=== PATIENT | female | born 1975 | race Caucasian/White ===

== ENCOUNTER → 2017-09-28 | Outpatient (CLI) | payer OTHER | END | disposition home or self-care (01) | LOC: RADPV 11:14 | PROVIDERS: ATTEND Nurse Practitioner | DX: M41.85 Other forms of scoliosis, thoracolumbar region (principal) | CPT/HCPCS: 72100 ==

== ENCOUNTER 2017-10-04 07:13 | Emergency (ER) | payer OTHER ==
[~2017-10-04] VITALS: Ht 167.6 cm; Wt 72.7 kg
[2017-10-04] MEDS ORDERED: HYDR25TA PO (07:22)
[2017-10-04] MEDS ORDERED: HYD25 PO (07:22)
[2017-10-04] MEDS ORDERED: TRAM50TA4 PO (07:22)
[2017-10-04] MEDS ORDERED: ALBU8HFA IH (07:22)
[2017-10-04] MEDS ORDERED: ATEN50TA PO (07:22)
[2017-10-04] MEDS ORDERED: GABAPENTIN 100 MG CAPSULE PO ONE (08:00)
[2017-10-04] MEDS ORDERED: LIDOCAINE HCL 5% TRANSDERMAL PATCH TD ONE (08:00)
[2017-10-04] MEDS ORDERED: KETOROLAC TROMETHAMINE 30 MG/ML VIAL IM ONE (08:00)
[2017-10-04] MEDS ORDERED: CYCLOBENZAPRINE HCL 10 MG TABLET PO ONE (10:00)
[2017-10-04] MEDS ORDERED: DEXAMETHASONE 4 MG TABLET PO ONE (10:00)
[2017-10-04 10:03] VITALS: BP 125/71
== END 2017-10-04 10:40 | disposition home or self-care (01) ==
LOC: EMS 07:15 → EEVIPCON 07:15 → EMS 10:40
DX: M54.5 Low back pain (principal); J45.909 Unspecified asthma, uncomplicated; F17.200 Nicotine dependence, unspecified, uncomplicated; Z88.6 Allergy status to analgesic agent; Z91.013 Allergy to seafood; Z85.41 Personal history of malignant neoplasm of cervix uteri; Z90.49 Acquired absence of other specified parts of digestive tract
CPT/HCPCS: 72131; 96372; 99284; J1885; J8540

== ENCOUNTER 2017-10-08 10:30 | Emergency (ER) | payer OTHER ==
[~2017-10-08] VITALS: Ht 167.6 cm; Wt 72.7 kg
[2017-10-08] MEDS ORDERED: KETOROLAC TROMETHAMINE 60 MG/2 ML VIAL IM ONE (11:15)
[2017-10-08] MEDS ORDERED: CYCLOBENZAPRINE HCL 10 MG TABLET PO ONE (13:00)
[2017-10-08 13:01] VITALS: BP 139/97
== END 2017-10-08 13:10 | disposition home or self-care (01) ==
LOC: EEVIPCON 10:30 → EMS 10:35
DX: M76.10 Psoas tendinitis, unspecified hip (principal); M48.061 Spinal stenosis, lumbar region without neurogenic claudication; L90.5 Scar conditions and fibrosis of skin; F17.210 Nicotine dependence, cigarettes, uncomplicated; J45.909 Unspecified asthma, uncomplicated; Z88.6 Allergy status to analgesic agent; Z91.013 Allergy to seafood
CPT/HCPCS: 96372; 99283; J1885

== ENCOUNTER → 2017-10-08 | Outpatient (CLI) | payer OTHER ==
[~2017-10-08] MED LIST: ALBU8HFA IH; ATEN50TA PO; HYD25 PO; HYDR25TA PO; TRAM50TA4 PO
== END | disposition home or self-care (01) ==
LOC: RADMN 08:24
PROVIDERS: ATTEND Nurse Practitioner
DX: S73.101A Unspecified sprain of right hip, initial encounter (principal); M48.061 Spinal stenosis, lumbar region without neurogenic claudication; M51.26 Other intervertebral disc displacement, lumbar region; M47.897 Other spondylosis, lumbosacral region; X58.XXXA Exposure to other specified factors, initial encounter; Y93.89 Activity, other specified; Y92.89 Other specified places as the place of occurrence of the external cause; Y99.8 Other external cause status
CPT/HCPCS: 72158; 72195

== ENCOUNTER 2017-11-13 13:43 | Inpatient (IN) | payer OTHER ==
[~2017-11-13] VITALS: Ht 167.6 cm; Wt 62.9 kg
[2017-11-13] MEDS ORDERED: KETOROLAC TROMETHAMINE 30 MG/ML VIAL IVP ONE (14:00)
[2017-11-13] MEDS ORDERED: MethylPREDNISolone SOD SUCC 125 MG/2 ML VIAL IVP ONE (14:00)
[2017-11-13] MEDS ORDERED: OxyCODONE HCL/ACETAMINOPHEN 5-325 MG TABLET PO ONE (14:00)
[2017-11-13] MEDS ORDERED: ONDANSETRON HCL 4 MG/2 ML VIAL IVP ONE (14:30)
[2017-11-13] MEDS ORDERED: HYDROmorphone 2 MG/ML SYRINGE IVP ONE ×2 (14:30→18:00)
[2017-11-13 14:34] LABS: BASOPHILS % (AUTO) 1.2 % (0.0-2.0); EOSINOPHILS % (AUTO) 2.8 % (1.0-6.0); HEMATOCRIT 40.8 % (36-46); HEMOGLOBIN 13.8 g/dL (12.0-16.0); LYMPHOCYTES # (AUTO) 2.6 K/uL (1.0-4.8); LYMPHOCYTES % (AUTO) 27.3 % (22.0-44.0); MEAN CORPUSCULAR HEMOGLOBIN 30.5 pg (26.0-34.0); MEAN CORPUSCULAR HGB CONC 33.8 G/dL (31.0-37.0); MEAN CORPUSCULAR VOLUME 90 fL (80-100); MONOCYTES # (AUTO) 0.7 K/uL (0.1-1.0); NEUTROPHILS # (AUTO) 5.8 K/uL (1.8-7.7); NEUTROPHILS % (AUTO) 61.7 % (40.0-70.0); PLATELET COUNT (AUTO) 384 K/uL (150-450); RED BLOOD CELL COUNT(AUTO) 4.52 MIL/uL (4.00-5.20); RED CELL DISTRIBUTION WIDTH 13.8 % (11.5-14.5)
[2017-11-13 14:45] LABS: ANION GAP 8 mmol/L (8-16); CALCIUM, TOTAL 9.3 mg/dL (8.8-10.5); CARBON DIOXIDE 29 mmol/L (22-29); CHLORIDE 105 mmol/L (98-107); CREATININE 0.88 mg/dL (0.60-1.30); GLOMERULAR FILTR. RATE CALC > 60 mL/min (>60); GLUCOSE,RANDOM 96 mg/dL (70-110); POTASSIUM 3.8 mmol/L (3.5-5.1); SODIUM SERUM 142 mmol/L (136-145); UREA NITROGEN, BLOOD 9 mg/dL (7-18)
[2017-11-13 14:51] LABS: ALANINE AMINOTRANSFERASE 26 U/L (12-78); ALBUMIN 4.2 g/dL (3.4-5.0); ALKALINE PHOSPHATASE 95 U/L (46-116); ASPARTATE AMINOTRANSFERASE 15 U/L (15-37); BILIRUBIN,TOTAL 0.2 mg/dL (0.1-1.0); TOTAL PROTEIN, SERUM 8.2 g/dL (6.4-8.2)
[2017-11-13] MEDS ORDERED: GADOBUTROL 1 MMOL/ML 10 ML VIAL IVP ONE (15:05)
[2017-11-13] MEDS ORDERED: SODIUM CHLORIDE 0.9% 1,000 ML IV ONE ×2 (17:00→22:45)
[2017-11-13 18:50] LABS: APPEARANCE,URINE CLEAR (CLEAR); BILIRUBIN,URINE NEGATIVE (NEGATIVE); GLUCOSE, URINE (UA) NEGATIVE (NEGATIVE); KETONES,URINE NEGATIVE (NEGATIVE); LEUKOCYTE ESTERASE ,URINE NEGATIVE (NEGATIVE); NITRATE,URINE NEGATIVE (NEGATIVE); OCCULT BLOOD,URINE LARGE (NEGATIVE); PH,URINE 6.5 (5.0-8.0); PROTEIN,URINE NEGATIVE (NEGATIVE); UROBILINOGEN,URINE 0.2 mg/dL (<=1.0)
[2017-11-13] MEDS ORDERED: 0.9% SODIUM CHLORIDE 10 ML SYRINGE IVP PRN (19:00)
[2017-11-13] MEDS ORDERED: ACETAMINOPHEN 325 MG TABLET PO PRN ×2 (19:00→23:30)
[2017-11-13] MEDS ORDERED: ONDANSETRON HCL 4 MG/2 ML VIAL IVP PRN (19:00)
[2017-11-13] MEDS ORDERED: HYDROmorphone 2 MG/ML SYRINGE IVP PRN (19:00)
[2017-11-13 19:01] LABS: RBC,URINE 0-2 /HPF (0-2)
[2017-11-13 19:02] LABS: BACTERIA,URINE None Seen /HPF (None Seen); SQUAMOUS EPITHELIAL CELL,UR Rare /LPF (None Seen)
[2017-11-13] MEDS ORDERED: CloNIDine HCL 0.2 MG TABLET PO ONE (21:15)
[2017-11-13] MEDS ORDERED: LABETALOL HCL 5 MG/ML 20 ML VIAL IVP ONE (22:45)
[2017-11-13] MEDS ORDERED: TraMADol HCL 50 MG TABLET PO PRN (23:15)
[2017-11-13] MEDS ORDERED: ALBUTEROL SULFATE 2.5 MG/0.5 ML NEB SOLUTION NEB PRN (23:30)
[2017-11-13] MEDS ORDERED: BISACODYL 10 MG RECTAL RECTAL SUPPOSITORY PR PRN (23:30)
[2017-11-13] MEDS ORDERED: ZOLPIDEM TARTRATE 5 MG TABLET PO PRN (23:30)
[2017-11-13] MEDS ORDERED: IPRATROPIUM BROMIDE 0.5 MG/2.5 ML NEB SOLUTION NEB PRN (23:30)
[2017-11-13] MEDS ORDERED: MAGNESIUM HYDROXIDE SUSPENSION 30 ML UDCUP PO PRN (23:30)
[2017-11-13 23:55] VITALS: BP 155/138
[2017-11-14] MEDS: HEPARIN SODIUM,PORCINE 5,000 UNITS/ML VIAL SQ SCH ×3 (00:04→15:57)
[2017-11-14 05:37] VITALS: BP 132/74
[2017-11-14] MEDS: HYDROmorphone 2 MG/ML SYRINGE IVP PRN ×6 (06:06→23:52)
[2017-11-14] MEDS: PANTOPRAZOLE SODIUM 40 MG DR TABLET PO SCH (08:38)
[2017-11-14] MEDS: HYDROCHLOROTHIAZIDE 25 MG TABLET PO SCH (08:38)
[2017-11-14] MEDS: DOCUSATE SODIUM 100 MG CAPSULE PO SCH ×2 (08:38→21:44)
[2017-11-14] MEDS ORDERED: HydrOXYzine HCL 25 MG TABLET PO SCH (09:00)
[2017-11-14] MEDS ORDERED: PREGABALIN 75 MG CAPSULE PO ONE (12:15)
[2017-11-14] MEDS: ONDANSETRON HCL 4 MG/2 ML VIAL IVP PRN ×2 (13:05→19:52)
[2017-11-14] MEDS ORDERED: CloNIDine HCL 0.1 MG TABLET PO PRN (16:45)
[2017-11-14 16:47] VITALS: BP 161/100
[2017-11-14 19:56] VITALS: BP 155/95
[2017-11-14] MEDS ORDERED: SODIUM CHLORIDE 0.9% 1,000 ML IV ONE (21:00)
[2017-11-14] MEDS: ATENOLOL 50 MG TABLET PO SCH (21:44)
[2017-11-14] MEDS: KETOROLAC TROMETHAMINE 30 MG/ML VIAL IVP PRN (22:00)
[2017-11-15] VITALS: BP 150/62
[2017-11-15] MEDS: HEPARIN SODIUM,PORCINE 5,000 UNITS/ML VIAL SQ SCH ×3 (00:04→15:53)
[2017-11-15] MEDS: HydrOXYzine HCL 25 MG TABLET PO PRN ×2 (00:50→18:30)
[2017-11-15 06:36] VITALS: BP 112/45
[2017-11-15] MEDS: HYDROmorphone 2 MG/ML SYRINGE IVP PRN ×5 (06:37→23:11)
[2017-11-15] MEDS: DOCUSATE SODIUM 100 MG CAPSULE PO SCH ×2 (09:42→20:26)
[2017-11-15] MEDS: PANTOPRAZOLE SODIUM 40 MG DR TABLET PO SCH (09:42)
[2017-11-15] MEDS: HYDROCHLOROTHIAZIDE 25 MG TABLET PO SCH (09:42)
[2017-11-15] MEDS: KETOROLAC TROMETHAMINE 30 MG/ML VIAL IVP PRN ×2 (09:42→18:25)
[2017-11-15 11:16] VITALS: BP 133/73
[2017-11-15] MEDS: ONDANSETRON HCL 4 MG/2 ML VIAL IVP PRN ×2 (12:11→20:25)
[2017-11-15 20:15] VITALS: BP 155/71
[2017-11-15] MEDS: ATENOLOL 50 MG TABLET PO SCH (20:26)
[2017-11-15] MEDS: PREGABALIN 75 MG CAPSULE PO SCH (20:26)
[2017-11-15] MEDS: OxyCODONE HCL/ACETAMINOPHEN 5-325 MG TABLET PO PRN (22:03)
[2017-11-15 23:06] VITALS: BP 157/97
[2017-11-16 01:31] VITALS: BP 140/76
[2017-11-16] MEDS: HYDROmorphone 2 MG/ML SYRINGE IVP PRN ×4 (04:43→20:46)
[2017-11-16 04:48] VITALS: BP 124/73
[2017-11-16 07:01] VITALS: BP 126/80
[2017-11-16] MEDS: OxyCODONE HCL/ACETAMINOPHEN 5-325 MG TABLET PO PRN ×3 (07:04→18:06)
[2017-11-16] MEDS: HYDROCHLOROTHIAZIDE 25 MG TABLET PO SCH (09:00)
[2017-11-16] MEDS: PANTOPRAZOLE SODIUM 40 MG DR TABLET PO SCH (09:11)
[2017-11-16] MEDS: HEPARIN SODIUM,PORCINE 5,000 UNITS/ML VIAL SQ SCH ×3 (09:11→18:05)
[2017-11-16] MEDS: DOCUSATE SODIUM 100 MG CAPSULE PO SCH ×2 (09:11→20:46)
[2017-11-16] MEDS: SODIUM CHLORIDE 0.45% 1,000 ML IV SCH (11:20)
[2017-11-16 11:39] LABS: BASOPHILS % (AUTO) 0.6 % (0.0-2.0); EOSINOPHILS % (AUTO) 3.4 % (1.0-6.0); HEMATOCRIT 38.3 % (36-46); HEMOGLOBIN 12.8 g/dL (12.0-16.0); LYMPHOCYTES # (AUTO) 1.7 K/uL (1.0-4.8); LYMPHOCYTES % (AUTO) 19.1 % (22.0-44.0); MEAN CORPUSCULAR HEMOGLOBIN 30.2 pg (26.0-34.0); MEAN CORPUSCULAR HGB CONC 33.5 G/dL (31.0-37.0); MEAN CORPUSCULAR VOLUME 90 fL (80-100); MONOCYTES # (AUTO) 0.6 K/uL (0.1-1.0); MONOCYTES % (AUTO) 7.1 % (2.0-9.0); NEUTROPHILS # (AUTO) 6.2 K/uL (1.8-7.7); NEUTROPHILS % (AUTO) 69.8 % (40.0-70.0); PLATELET COUNT (AUTO) 343 K/uL (150-450); RED BLOOD CELL COUNT(AUTO) 4.24 MIL/uL (4.00-5.20); RED CELL DISTRIBUTION WIDTH 13.6 % (11.5-14.5)
[2017-11-16 11:42] VITALS: BP 142/80
[2017-11-16 11:48] LABS: ANION GAP 5 mmol/L (8-16); CALCIUM, TOTAL 8.9 mg/dL (8.8-10.5); CARBON DIOXIDE 32 mmol/L (22-29); CHLORIDE 101 mmol/L (98-107); CREATININE 0.96 mg/dL (0.60-1.30); GLOMERULAR FILTR. RATE CALC > 60 mL/min (>60); GLUCOSE,RANDOM 128 mg/dL (70-110); POTASSIUM 3.5 mmol/L (3.5-5.1); SODIUM SERUM 138 mmol/L (136-145); UREA NITROGEN, BLOOD 19 mg/dL (7-18)
[2017-11-16 12:21] LABS: INR 0.9 (0.9-1.1); PROTHROMBIN TIME 9.8 SEC (9.4-11.6)
[2017-11-16 15:33] VITALS: BP 131/77
[2017-11-16] MEDS: PREGABALIN 75 MG CAPSULE PO SCH (20:46)
[2017-11-16] MEDS: ATENOLOL 50 MG TABLET PO SCH (20:46)
[2017-11-16] MEDS: ONDANSETRON HCL 4 MG/2 ML VIAL IVP PRN (20:51)
[2017-11-17] VITALS (8 sets, daily range): BP systolic 109–154; BP diastolic 68–99
[2017-11-17] MEDS: HYDROmorphone 2 MG/ML SYRINGE IVP PRN ×5 (01:47→20:53)
[2017-11-17] MEDS: ONDANSETRON HCL 4 MG/2 ML VIAL IVP PRN ×4 (01:54→20:52)
[2017-11-17] MEDS: SODIUM CHLORIDE 0.45% 1,000 ML IV SCH ×2 (07:00→22:08)
[2017-11-17] MEDS: OxyCODONE HCL/ACETAMINOPHEN 5-325 MG TABLET PO PRN (07:34)
[2017-11-17] MEDS: HEPARIN SODIUM,PORCINE 5,000 UNITS/ML VIAL SQ SCH ×3 (07:43→16:00)
[2017-11-17] MEDS: DOCUSATE SODIUM 100 MG CAPSULE PO SCH ×3 (07:44→21:00)
[2017-11-17] MEDS: PANTOPRAZOLE SODIUM 40 MG DR TABLET PO SCH (07:44)
[2017-11-17] MEDS ORDERED: THROMBIN, BOVINE 20000 UNITS/VIAL POWDER TP ONE (07:59)
[2017-11-17] MEDS ORDERED: LIDOCAINE HCL 1%/EPI 1:200,000/PF 30 ML VIAL ONE (08:00)
[2017-11-17] MEDS ORDERED: GELATIN SPONGE,ABSORBABLE 100 MM TP ONE (08:00)
[2017-11-17] MEDS ORDERED: SODIUM CHLORIDE 0.9% 100 ML ONE (08:01)
[2017-11-17] MEDS: HYDROCHLOROTHIAZIDE 25 MG TABLET PO SCH (09:00)
[2017-11-17] MEDS ORDERED: RINGERS SOLUTION,LACTATED 1,000 ML IV ONE ×4 (10:39→14:29)
[2017-11-17] MEDS ORDERED: NEOSTIGMINE METHYLSULFATE 1 MG/ML 10 ML VIAL IVP ONE (12:00)
[2017-11-17] MEDS ORDERED: LIDOCAINE HCL/PF 2% 5 ML VIAL INJ ONE (12:00)
[2017-11-17] MEDS ORDERED: EPHEDrine SULFATE 50 MG/ML VIAL IM ONE (12:00)
[2017-11-17] MEDS ORDERED: ROCURONIUM BROMIDE 10 MG/ML 5 ML VIAL IVP ONE (12:00)
[2017-11-17] MEDS ORDERED: DEXAMETHASONE SOD PHOS 4 MG/ML VIAL IVP ONE (12:00)
[2017-11-17] MEDS ORDERED: PHENYLEPHRINE HCL 10 MG/ML VIAL IVP ONE (12:00)
[2017-11-17] MEDS ORDERED: SUCCINYLCHOLINE CHLORIDE 20 MG/ML 10 ML VIAL IVP ONE (12:00)
[2017-11-17] MEDS ORDERED: GLYCOPYRROLATE 0.2 MG/ML VIAL IM ONE (12:00)
[2017-11-17] MEDS ORDERED: ONDANSETRON HCL 4 MG/2 ML VIAL IVP ONE (12:00)
[2017-11-17] MEDS ORDERED: 0.9% SODIUM CHLORIDE 10 ML VIAL IVP ONE (12:00)
[2017-11-17] MEDS ORDERED: ACETAMINOPHEN 1000 MG/ISO-OSM 100 ML IV ONE (12:00)
[2017-11-17] MEDS ORDERED: PROPOFOL 1% 20 ML VIAL IVP ONE (12:00)
[2017-11-17] MEDS ORDERED: FentaNYL CITRATE-PF 100 MCG/2 ML VIAL IVP PRN (13:15)
[2017-11-17] MEDS ORDERED: MEPERIDINE-PF 25 MG/ML SYRINGE IVP PRN (13:15)
[2017-11-17] MEDS ORDERED: HYDROmorphone 2 MG/ML SYRINGE IVP PRN ×3 (13:15→15:45)
[2017-11-17] MEDS ORDERED: SODIUM CHLORIDE 0.9% 250 ML IV ONE (15:33)
[2017-11-17] MEDS: ACETAMINOPHEN 1000 MG/ISO-OSM 100 ML IV SCH ×2 (15:45→22:08)
[2017-11-17] MEDS ORDERED: ACETAMINOPHEN 325 MG TABLET PO PRN (15:45)
[2017-11-17] MEDS ORDERED: DiphenhydrAMINE HCL 50 MG/ML VIAL IVP PRN (15:45)
[2017-11-17] MEDS ORDERED: NALOXONE HCL 0.4 MG/ML VIAL IVP PRN (15:45)
[2017-11-17] MEDS ORDERED: HYDROCODONE/ACETAMINOPHEN 5-325 MG TABLET PO PRN ×2 (15:45)
[2017-11-17] MEDS ORDERED: MAG HYDROX/AL HYDROX/SIMETH 30 ML SUSP UDCUP PO PRN (15:45)
[2017-11-17] MEDS ORDERED: ONDANSETRON HCL 4 MG/2 ML VIAL ONE (16:12)
[2017-11-17] MEDS ORDERED: MIDAZOLAM HCL 2 MG/2 ML VIAL ONE (16:43)
[2017-11-17] MEDS ORDERED: METOCLOPRAMIDE HCL 5 MG/ML 2 ML VIAL IVP ONE (16:45)
[2017-11-17] MEDS ORDERED: MIDAZOLAM HCL 2 MG/2 ML VIAL IVP ONE (16:45)
[2017-11-17] MEDS ORDERED: HYDROmorphone 2 MG/ML SYRINGE IVP ONE (16:45)
[2017-11-17] MEDS ORDERED: METOCLOPRAMIDE HCL 5 MG/ML 2 ML VIAL ONE (16:49)
[2017-11-17] MEDS ORDERED: SODIUM CHLORIDE 0.45% 1,000 ML IV ONE (17:22)
[2017-11-17 19:57] LABS: BASOPHILS % (AUTO) 0.1 % (0.0-2.0); EOSINOPHILS % (AUTO) 0.1 % (1.0-6.0); HEMOGLOBIN 11.2 g/dL (12.0-16.0); LYMPHOCYTES # (AUTO) 0.6 K/uL (1.0-4.8); LYMPHOCYTES % (AUTO) 4.6 % (22.0-44.0); MEAN CORPUSCULAR HEMOGLOBIN 30.5 pg (26.0-34.0); MEAN CORPUSCULAR HGB CONC 33.9 G/dL (31.0-37.0); MEAN CORPUSCULAR VOLUME 90 fL (80-100); MONOCYTES # (AUTO) 0.3 K/uL (0.1-1.0); MONOCYTES % (AUTO) 2.5 % (2.0-9.0); NEUTROPHILS # (AUTO) 12.8 K/uL (1.8-7.7); PLATELET COUNT (AUTO) 325 K/uL (150-450); RED BLOOD CELL COUNT(AUTO) 3.67 MIL/uL (4.00-5.20)
[2017-11-17 20:04] LABS: NEUTROPHILS % (AUTO) 92.7 % (40.0-70.0)
[2017-11-17 20:06] LABS: ANION GAP 8 mmol/L (8-16); CALCIUM, TOTAL 8.6 mg/dL (8.8-10.5); CARBON DIOXIDE 28 mmol/L (22-29); CHLORIDE 103 mmol/L (98-107); CREATININE 0.88 mg/dL (0.60-1.30); GLOMERULAR FILTR. RATE CALC > 60 mL/min (>60); GLUCOSE,RANDOM 133 mg/dL (70-110); POTASSIUM 4.2 mmol/L (3.5-5.1); SODIUM SERUM 139 mmol/L (136-145); UREA NITROGEN, BLOOD 13 mg/dL (7-18)
[2017-11-17] MEDS: OXYGEN THERAPY IH SCH (21:11)
[2017-11-17] MEDS: ZOLPIDEM TARTRATE 10 MG TABLET PO PRN (21:11)
[2017-11-17] MEDS: CeFAZolin 1 GM/DEXTROSE 50 ML IV SCH (21:11)
[2017-11-17] MEDS: ATENOLOL 50 MG TABLET PO SCH (21:12)
[2017-11-17] MEDS: PREGABALIN 75 MG CAPSULE PO SCH (21:12)
[2017-11-17] MEDS ORDERED: CeFAZolin 1 GM/DEXTROSE 10 ML IV SCH (22:00)
[2017-11-18] VITALS (8 sets, daily range): BP systolic 102–139; BP diastolic 53–84
[2017-11-18] MEDS: HYDROmorphone 2 MG/ML SYRINGE IVP PRN ×6 (00:51→23:33)
[2017-11-18] MEDS: ACETAMINOPHEN 1000 MG/ISO-OSM 100 ML IV SCH ×2 (03:49→09:39)
[2017-11-18] MEDS: CeFAZolin 1 GM/DEXTROSE 50 ML IV SCH (05:22)
[2017-11-18 06:35] LABS: BASOPHILS % (AUTO) 0.3 % (0.0-2.0); EOSINOPHILS % (AUTO) 0.2 % (1.0-6.0); HEMATOCRIT 30.5 % (36-46); HEMOGLOBIN 10.4 g/dL (12.0-16.0); LYMPHOCYTES # (AUTO) 2.1 K/uL (1.0-4.8); LYMPHOCYTES % (AUTO) 15.1 % (22.0-44.0); MEAN CORPUSCULAR HGB CONC 34.1 G/dL (31.0-37.0); MEAN CORPUSCULAR VOLUME 91 fL (80-100); MONOCYTES # (AUTO) 1.2 K/uL (0.1-1.0); MONOCYTES % (AUTO) 8.3 % (2.0-9.0); NEUTROPHILS # (AUTO) 10.6 K/uL (1.8-7.7); NEUTROPHILS % (AUTO) 76.1 % (40.0-70.0); PLATELET COUNT (AUTO) 287 K/uL (150-450); RED BLOOD CELL COUNT(AUTO) 3.35 MIL/uL (4.00-5.20)
[2017-11-18 06:41] LABS: ANION GAP 3 mmol/L (8-16); CARBON DIOXIDE 32 mmol/L (22-29); CHLORIDE 105 mmol/L (98-107); CREATININE 0.95 mg/dL (0.60-1.30); GLOMERULAR FILTR. RATE CALC > 60 mL/min (>60); GLUCOSE,RANDOM 123 mg/dL (70-110); POTASSIUM 3.6 mmol/L (3.5-5.1); SODIUM SERUM 140 mmol/L (136-145); UREA NITROGEN, BLOOD 14 mg/dL (7-18)
[2017-11-18 06:49] LABS: CALCIUM, TOTAL 8.2 mg/dL (8.8-10.5)
[2017-11-18] MEDS: PANTOPRAZOLE SODIUM 40 MG DR TABLET PO SCH (08:57)
[2017-11-18] MEDS: DOCUSATE SODIUM 100 MG CAPSULE PO SCH ×4 (08:57→21:00)
[2017-11-18] MEDS: ONDANSETRON HCL 4 MG/2 ML VIAL IVP PRN ×2 (09:39→20:35)
[2017-11-18] MEDS: HYDROCHLOROTHIAZIDE 25 MG TABLET PO SCH (09:42)
[2017-11-18] MEDS: SODIUM CHLORIDE 0.45% 1,000 ML IV SCH (12:07)
[2017-11-18] MEDS: KETOROLAC TROMETHAMINE 30 MG/ML VIAL IVP PRN (16:16)
[2017-11-18] MEDS: PREGABALIN 75 MG CAPSULE PO SCH (20:30)
[2017-11-18] MEDS: ATENOLOL 50 MG TABLET PO SCH (20:30)
[2017-11-18] MEDS: OxyCODONE HCL/ACETAMINOPHEN 5-325 MG TABLET PO PRN (21:34)
[2017-11-18] MEDS: HydrOXYzine HCL 25 MG TABLET PO PRN (23:36)
[2017-11-19] MEDS: ZOLPIDEM TARTRATE 10 MG TABLET PO PRN (00:55)
[2017-11-19] MEDS: HYDROmorphone 2 MG/ML SYRINGE IVP PRN (01:07)
[2017-11-19] MEDS: OxyCODONE HCL/ACETAMINOPHEN 5-325 MG TABLET PO PRN (02:03)
[2017-11-19] MEDS: OXYGEN THERAPY IH SCH (02:04)
[2017-11-19] MEDS: SODIUM CHLORIDE 0.45% 1,000 ML IV SCH (02:04)
[2017-11-19 04:30] VITALS: BP 101/55
[2017-11-19] MEDS ORDERED: FentaNYL CITRATE-PF 250 MCG/5 ML VIAL IVP ONE (04:56)
[2017-11-19] MEDS ORDERED: HYDROmorphone 2 MG/ML SYRINGE IVP ONE (04:56)
[2017-11-19] MEDS ORDERED: KETAMINE HCL 50 MG/ML 10 ML VIAL IVP ONE (04:56)
[2017-11-19] MEDS ORDERED: MIDAZOLAM HCL 2 MG/2 ML VIAL IVP ONE (04:56)
[2017-11-19 07:26] VITALS: BP 111/67
[2017-11-19] MEDS: DOCUSATE SODIUM 100 MG CAPSULE PO SCH (10:33)
[2017-11-19] MEDS: HYDROCHLOROTHIAZIDE 25 MG TABLET PO SCH (10:33)
[2017-11-19] MEDS: PANTOPRAZOLE SODIUM 40 MG DR TABLET PO SCH (10:33)
[2017-11-19 11:30] VITALS: BP 130/57
[2017-11-21] MEDS ORDERED: ADV250 IH (14:09)
[2017-11-21] MEDS ORDERED: ESOM20CA31 PO (14:10)
[2017-11-24] MEDS ORDERED: PANT40TA25 PO (01:39)
[2017-11-24] MEDS ORDERED: DOCU250C91 PO (01:41)
[2017-11-24] MEDS ORDERED: HYDR-309 PO (01:48)
[2017-11-24] MEDS ORDERED: ZOLP10TA7 PO (01:48)
== END 2017-11-19 14:30 | disposition short-term general hospital (02) | DRG 517 ==
LOC: EMS 13:44 → 5N 22:36 → ICU 11-17 13:45 → 4E 11-17 17:10
PROVIDERS: ADMIT Hospitalist; ATTEND Hospitalist
PROC: 0QB00ZZ Excision of Lumbar Vertebra, Open Approach (ICD-10-PCS; 2017-11-17)
PROC: 0QB10ZZ Excision of Sacrum, Open Approach (ICD-10-PCS; principal; 2017-11-17 12:00)
DX: M51.9 Unspecified thoracic, thoracolumbar and lumbosacral intervertebral disc disorder (principal); F17.200 Nicotine dependence, unspecified, uncomplicated; I10 Essential (primary) hypertension; J45.909 Unspecified asthma, uncomplicated; M21.371 Foot drop, right foot; M54.10 Radiculopathy, site unspecified; M54.41 Lumbago with sciatica, right side; S20.229A Contusion of unspecified back wall of thorax, initial encounter; Z82.0 Family history of epilepsy and other diseases of the nervous system; Z86.61 Personal history of infections of the central nervous system; Z91.013 Allergy to seafood; Z88.8 Allergy status to other drugs, medicaments and biological substances; Z85.41 Personal history of malignant neoplasm of cervix uteri; Z90.49 Acquired absence of other specified parts of digestive tract; Z98.1 Arthrodesis status
CPT/HCPCS: 72158; 86850; 86870; 86900; 86901; 86905; 88304; 88311; 96361; 96374; 96375; 96376; 97116; 97163; 97166; 97530; 99285; A9585; G0238; J0131; J0330; J0690; J1100; J1170; J1644; J1885; J2250; J2370; J2405; J2704; J2765; J2930; J3010; J3490; J7030; J7050; J7120

== ENCOUNTER → 2020-01-24 | Outpatient (CLI) | payer OTHER ==
[~2020-01-24] MED LIST changes: +ADV250 IH; +ATEN-72 PO; -ATEN50TA PO; -HYD25 PO; +HYDR-1475 PO; +HYDR-309 PO; -HYDR25TA PO; +PANT-31 PO; -TRAM50TA4 PO
== END | disposition home or self-care (01) ==
LOC: RADPV 09:36
PROVIDERS: ATTEND Internal Medicine
DX: Z02.1 Encounter for pre-employment examination (principal)